=== PATIENT | female | born 1955 | race Caucasian/White ===

== ENCOUNTER 2019-10-23 15:26 | Emergency (ER) | payer MEDICARE, OTHER ==
[2019-10-23 16:30] LABS: Influenza A Molecular NEGATIVE (Negative); Influenza B Molecular NEGATIVE (Negative)
[2019-10-23 16:52] VITALS: BP 128/81
--- NOTE | 2019-10-23 17:07 | UC ---
FLU HPI - HPI Summary HPI Summary: Pt presents with c/o sudden onset of fever, body aches cough, X 1 day. Pt has COPD and chronic "walking pneumonia". Pt is visiting from [place] and is unable to see her hair or beauty salon assistant. Pt is requesting antibiotic as she states " that is what her hair or beauty salon assistant gives her" - History of Current Complaint Chief Complaint: UCRespiratory Stated Complaint: FEVER, BODY ACHES, MOUTH PAIN, HEADACHE Time Seen by Provider: 10/23/19 16:15 Hx Obtained From: Patient ?: No Onset/Duration: Sudden Onset, Lasting Days, Still Present Severity Currently: Severe Severity Initially: Moderate Pain Intensity: 5 Pain Scale Used: 0-10 Numeric Associated Signs & Symptoms: Positive: Fever, Cough Related Hx: Possible Flu/Infectious Exposure - Risk Factors Influenza Risk Factors: Age 65 y/o or Older, Chronic Medical or Immunosuppresive Condition - has copd - Allergy/Home Medications Allergies/Adverse Reactions: Allergies Allergy/AdvReac Type Severity Reaction Status Date / Time morphine Allergy Itching Verified 10/23/19 15:58 Home Medications: Home Medications Desvenlafaxine Succinate [Pristiq] 150 mg PO DAILY 10/23/19 [History Confirmed 10/23/19] Ibuprofen [Advil] 800 mg PO DAILY 10/23/19 [History Confirmed 10/23/19] Levothyroxine Sodium 100 mcg PO DAILY 10/23/19 [History Confirmed 10/23/19] Metformin HCl [Fortamet] 1,000 mg PO BID 10/23/19 [History Confirmed 10/23/19] Phenylephrine HCl/Acetaminophn [Acetaminophen Congst-Pain Cplt] 2 tab PO DAILY 10/23/19 [History Confirmed 10/23/19] Pravastatin Sodium 40 mg PO DAILY 10/23/19 [History Confirmed 10/23/19] glipiZIDE [Glipizide] 5 mg PO DAILY 10/23/19 [History Confirmed 10/23/19] hydroCHLOROthiazide [Hydrochlorothiazide] 12.5 mg PO DAILY 10/23/19 [History Confirmed 10/23/19] lisinopriL [Lisinopril] 15 mg PO DAILY 10/23/19 [History Confirmed 10/23/19] PMH/Surg Hx/FS Hx/Imm Hx Previously Healthy: Yes Endocrine History: Diabetes Cardiovascular History: Cardiac Disease Respiratory History: COPD, Pneumonia - Surgical History Surgical History: Yes Surgery Procedure, Year, and Place: hysterectomy, [place] fundlplication. thyroidectomy, fx tibfib, [place] - Family History Known Family History: Positive: Cardiac Disease - Social History Occupation: Retired Lives: With Family Alcohol Use: None Substance Use Type: None Smoking Status (MU): Never Smoked Tobacco Have You Smoked in the Last Year: No - Immunization History Vaccination Up to Date: Yes Review of Systems All Other Systems Reviewed And Are Negative: Yes Constitutional: Positive: Fever, Fatigue Skin: Positive: Negative Eyes: Positive: Negative ENT: Positive: Negative Respiratory: Positive: Shortness Of Breath, Cough Cardiovascular: Positive: Negative Gastrointestinal: Positive: Negative Genitourinary: Positive: Negative Motor: Positive: Negative Neurovascular: Positive: Negative Musculoskeletal: Positive: Myalgia Neurological: Positive: Negative Psychological: Positive: Negative Is Patient Immunocompromised?: No Physical Exam Triage Information Reviewed: Yes Appearance: Ill-Appearing Vital Signs: Initial Vital Signs Temp 98.3 F 10/23/19 16:04 Pulse 93 10/23/19 16:04 Resp 20 10/23/19 16:04 BP 128/81 10/23/19 16:04 Pulse Ox 98 10/23/19 16:04 Vital Signs Reviewed: Yes Eye Exam: Normal ENT Exam: Normal Dental Exam: Normal Neck exam: Normal Respiratory: Positive: Decreased breath sounds Cardiovascular Exam: Normal Musculoskeletal Exam: Normal Neurological Exam: Normal Psychological Exam: Normal Skin Exam: Normal Flu Course/Dx - Course Course Of Treatment: I disucssed with the pt the need to follow up with PCP and hair or beauty salon assistant as soon as possible. Pt verbalized understanding and requested levoquin for antibiotic as she states "that is the only thing that works for her" - Differential Dx/Diagnosis Differential Diagnosis/HQI/PQRI: Influenza, Pneumonia Provider Diagnosis: COPD exacerbation, Fever and chills Discharge ED - Sign-Out/Discharge Documenting (check all that apply): Patient Departure All imaging exams completed and their final reports reviewed: No Studies - Discharge Plan Condition: Stable Disposition: HOME Prescriptions: Levofloxacin TAB* [Levaquin 500 Tab*] 500 mg PO DAILY #5 tab predniSONE 20 mg TAB [Deltasone 20 MG TAB*] 40 mg PO DAILY #9 tab Patient Education Materials: Acute Bronchitis (ED) Referrals: No Primary Care Phys,NOPCP [Primary Care Provider] - If Needed Additional Instructions: Please call your hair or beauty salon assistant as soon as possible. You have requested that you be treated with an antibiotic. Please note that you are at risk for developing side effects from the antibiotic. Please seek care immediately at the closest emergency room if your symptoms do not improve or worsen. - Billing Disposition and Condition Condition: STABLE Disposition: Home - Attestation Statements Provider Attestation: I was available for consult. This patient was seen by the ROSALIE. The patient was not presented to, seen by, or examined by me. -Charlie
== END 2019-10-23 16:57 | disposition home or self-care (01) ==
LOC: UCCORT 15:26
DX: J44.1 Chronic obstructive pulmonary disease with (acute) exacerbation (principal); R50.9 Fever, unspecified; E11.9 Type 2 diabetes mellitus without complications; Z88.5 Allergy status to narcotic agent; Z79.84 Long term (current) use of oral hypoglycemic drugs
CPT/HCPCS: 99202; G0463